=== PATIENT | female | born 1980 | race Caucasian/White ===

== ENCOUNTER 2024-07-08 09:53 | Inpatient (IN) | payer OTHER, SELFPAY ==
--- OUTSIDE RECORDS SUMMARY | 2024-07-08 09:55 | XMS REPORT | Continuity of Care Document ---
Author Name Unknown Address [address] [place] [address] 1 [address] [place] [address] [facility] thconnect Address [address] [place] [address] Care Team Providers Care Clothing Designer Name Role Phone [place] Attending Clinician Unavailable ASHWIN LANDRY Attending Clinician Unavailabl e [place] Admitting Clinician Unavailable Payers Payer Name Policy Type Policy Number Effective Date Expirati on Date Source [employer] [id number] Coverity - [employer] ACCESS [id number] 2022 00:00:00 [employer] [facility] CARE [id number] 2016 00:00:00 Allergies, Adverse Reactions, Alerts Allergy Name Allergy Type Status Severity Reaction(s) Onset Date Inactive Date Treating Clinician Comments Source NO KNOWN ALLERGIE S Drug Class Active [facility] Social History Smoking Status Start Date Stop Date Source Never Smoker [facility] Medications Ordered Medication Name Filled Medication Name Start Date Stop Date Current Medication? Ordering Clinician Indication Dosage Frequency Signature (SIG) Comments Components Source guanfacine ER 2 mg tablet,exte nded release 24 hr TAKE ONE (1) TABLET(S) BY MOUTH ONCE A DAY. guanfacine ER 2 mg tablet,exte nded release 24 hr TAKE ONE (1) TABLET(S) BY MOUTH ONCE A DAY. No guanfacine ER 2 mg tablet,ext ended release 24 hr TAKE ONE (1) TABLET(S) BY MOUTH ONCE A DAY. [facility] omeprazole 40 mg capsule,del ayed release TAKE ONE (1) CAPSULE(S) BY MOUTH ONCE A DAY. DO NOT CRUSH OR CHEW. omeprazole 40 mg capsule,del ayed release TAKE ONE (1) CAPSULE(S) BY MOUTH ONCE A DAY. DO NOT CRUSH OR CHEW. No omeprazole 40 mg capsule,de layed release TAKE ONE (1) CAPSULE(S) BY MOUTH ONCE A DAY. DO NOT CRUSH OR CHEW. [facility] propranolol 20 mg tablet TAKE ONE (1) TABLET(S) BY MOUTH ONCE A DAY. propranolol 20 mg tablet TAKE ONE (1) TABLET(S) BY MOUTH ONCE A DAY. No propranolo l 20 mg tablet TAKE ONE (1) TABLET(S) BY MOUTH ONCE A DAY. [facility] sertraline 100 mg tablet TAKE ONE (1) TABLET(S) BY MOUTH ONCE A DAY. sertraline 100 mg tablet TAKE ONE (1) TABLET(S) BY MOUTH ONCE A DAY. No sertraline 100 mg tablet TAKE ONE (1) TABLET(S) BY MOUTH ONCE A DAY. [facility] atomoxetine 60 mg capsule TAKE ONE (1) CAPSULE(S) BY MOUTH ONCE A DAY. SWALLOW WHOLE, DO NOT OPEN. IF OPENED ACCIDENTALL Y, DO NOT TOUCH EYES, WASH HANDS IMMEDIATELY . atomoxetine 60 mg capsule TAKE ONE (1) CAPSULE(S) BY MOUTH ONCE A DAY. SWALLOW WHOLE, DO NOT OPEN. IF OPENED ACCIDENTALL Y, DO NOT TOUCH EYES, WASH HANDS IMMEDIATELY . No atomoxetin e 60 mg capsule TAKE ONE (1) CAPSULE(S) BY MOUTH ONCE A DAY. SWALLOW WHOLE, DO NOT OPEN. IF OPENED ACCIDENTAL LY, DO NOT TOUCH EYES, WASH HANDS IMMEDIATEL Y. [facility] ergocalcife rol (vitamin D2) 1,250 mcg (50,000 unit) capsule TAKE ONE (1) CAPSULE(S) BY MOUTH ONCE WEEKLY. ergocalcife rol (vitamin D2) 1,250 mcg (50,000 unit) capsule TAKE ONE (1) CAPSULE(S) BY MOUTH ONCE WEEKLY. No ergocalcif temo (vitamin D2) 1,250 mcg (50,000 unit) capsule TAKE ONE (1) CAPSULE(S) BY MOUTH ONCE WEEKLY. [facility] Vital Signs Vital Name Observation Time Observation Value Comments S ource BP Diastolic 2022-10-03 00:00:00 79 mm[Hg] [facility] Height 2022-10-03 00:00:00 68 [in_i] [facility] (Body Mass Index) 2022-10-03 00:00:00 28 kg/m2 [facility] dical [facility] BP Systolic 2022-10-03 00:00:00 126 mm[Hg] [facility] Body Weight 2022-10-03 00:00:00 184 [lb_av] [facility] bryn [facility] Plan of Care Planned Activity Planned Date Details Comments Source Diagnostic Test Pending 2022-10-03 00:00:00 pap, IG + HR HPV [code = pap, IG + HR HPV] [facility] Encounters Start Date/Time End Date/Time Encounter Type Admission Type Attending [facility] Care Facility Care Department Encounter ID Source 2022-11-03 00:00:00 2022-11-03 00:00:00 [place] [id number] [facility] 2022-10-03 00:00:00 2022-10-03 00:00:00 [place] [id number] [facility] 2022-10-03 00:00:00 2022-10-03 00:00:00 Ivis Palmer MD: [address] [place] [address] [address], [place] [address] , Ph. [phone] [facility] [id number] [facility] 2022-06-29 00:00:00 2022-06-29 00:00:00 Outpatient [facility] [id number] [facility] 2016-11-17 09:45:00 2016-11-17 10:50:51 Outpatient ASHWIN MONTEJO [facility] [id number] [facility] Results Test Description Test Time Test Comments Results Resul t Comments Source SCR MAMM BILATERAL BENEDICTO CAD DIGITAL 2022-09-01 08:44:11 Name: Stefany : 1980 Sex: F - SCR MAMM BILATERAL EBNEDICTO CAD DIGITALBILATERAL FIRST EVER DIGITAL SCREENING MAMMOGRAM 3D/2D WITH CAD: 2Digital breast tomosynthesis was performed in addition to routine CC and MLO views. Current mammographic images were evaluated by [employer] CAD (computer-aided detection) software. No prior exams were available for comparison. The tissue of both breasts is heterogeneously dense. This may lower the sensitivity of mammography. There is a 7 cm fat containing mixed density mass with a circumscribed margin and thin capsule (?fibroadenolipoma/hama rtoma?) in the right breast at 9 o'clock posterior depth. No other significant masses, calcifications, or other findings are seen in either breast. IMPRESSION: INCOMPLETE: ADDITIONAL IMAGING EVALUATION NEEDEDThe 7 cm mixed density mass in the right breast is indeterminate. Additional views as well as an ultrasound are recommended. Jovita ruiz/:09/01/2022 08:44:11 Java Sybase Developer: Loren Lomax MM, [facility] Mammographyletter sent: Additional Imaging Mammogram BI-RADS: 0 Incomplete: Additional Imaging Evaluation Needed
[2024-07-08] MEDS ORDERED: NA CHLORIDE 0.9% 1,000 ML ONE (10:22)
[2024-07-08] MEDS ORDERED: DIAZEPAM 5 MG TABLET ONE (10:38)
[2024-07-08 10:41] LABS: Absolute Lymphocytes (CBC) 0.9 K/uL (0.7-4.9); Absolute Monocytes 0.5 K/uL (0.1-1.3); Absolute Neutrophil 5.3 K/uL (1.8-8.0); Basophils % 0.5 % (0-1.3); Eosinophils % 0.1 % (0-4.4); Hematocrit 21.4 % (36.0-45.0); Hemoglobin 7.2 g/dL (12.0-15.0); MCH 29.2 pg (27.0-35.0); MCHC 33.5 g/dL (32.0-36.0); MCV 87.1 fL (80-100); MPV 7.4 fL (7.6-11.3); Monocytes % 7.2 % (3.3-12.3); Neutrophils % 79.2 % (41.7-73.7); Platelets 243 thou/uL (152-406); RBC Red Blood Cell Count 2.46 M/uL (3.86-4.86); Red Cell Distribution Width 12.9 % (12.1-15.2)
[2024-07-08 10:57] LABS: Albumin 3.1 g/dL (3.4-5.0); Anion Gap 10.5 mEq/L (5.0-15.0); Bilirubin Total 0.3 mg/dL (0.2-1.0); Globulin 3.1 g/dL (2.3-3.5); Potassium 3.5 mEq/L (3.5-5.1); Protein, Total 6.2 g/dL (6.4-8.2)
[2024-07-08 11:25] LABS: Specific Gravity 1.008 (1.005-1.030)
[2024-07-08 11:35] LABS: Sqamous Epithelial <5 /HPF (None Seen); Urine Bacteria <20 /HPF (<20); Urine Culture Reflex Order NOT NEEDED; Urine RBC <5 /HPF (None Seen); Urine WBC <5 /HPF (<5); Urine WBC Clump Rare /HPF (None Seen)
--- NOTE | 2024-07-08 12:05 | RAD REPORT ---
EXAMINATION: CT ABDOMEN AND PELVIS WITH CONTRAST CLINICAL INDICATION: Female, 44 years old. [facility] MAIN bloody diarrhea, possible colitis;Abd pain IV ONLY Bed Name: 15 TECHNIQUE: CT abdomen and pelvis was performed, after the administration of IV contrast, as per [facility] protocol. Contrast dose: 100 mL Isovue 300. Axial, sagittal and coronal reconstructions were obtained. One or more of the following dose reduction techniques were used: Automated exposure contro l, adjustment of the mA and kV according to patient size, and iterative reconstruction. Unless otherwise specified, incidental findings do not require dedicated imaging follow-up. COMPARISON: No prior exam. FINDINGS: LOWER CHEST: The visualized lung bases are clear. LIVER: Normal in size and contour. No focal lesion. BILIARY SYSTEM: Layering mildly hyperdense gallbladder sludge. No other suspicious abnormalities. SPLEEN: Normal size. No focal lesion. PANCREAS: No mass, ductal dilation, or mono-pancreatic fluid. ADRENALS: Normal; no mass. KIDNEYS: Normal size and contour. No hydronephrosis. URINARY BLADDER: Unremarkable. GASTROINTESTINAL TRACT: No evidence of free air, significant intra-abdominal free fluid, bowel obstru ction or abscess. Fluid filling of the rectum with air-fluid level, without significant mucosal hyperenhancement or wall thickening. APPENDIX: Normal appendix. LYMPH NODES: No lymphadenopathy. MUSCULOSKELETAL: No acute or suspicious osseous abnormality. ADDITIONAL FINDINGS: None. IMPRESSION: Fluid filling of the rectum, may suggest proctitis or diarrheal state. No other acute or concerning abnormalities seen in the abdomen or pelvis.
[2024-07-08] MEDS ORDERED: MORPHINE 2 MG/ML SYR IV PRN (12:23)
--- NOTE | 2024-07-08 12:23 | ER ---
Nurse's Notes [facility] Name: Júnior Flaherty Age: 44 yrs Sex: Female : 1980 Arrival Date: 07/08/2024 Time: 09:53 Bed 15 Private MD: Diagnosis: Left sided colitis with rectal bleeding;Anemia, unspecified Presentation: 07/08 09:58 Chief complaint: Patient states: "on Monday I felt like I had food poisoning and then aa I had blood in the stool ". Pt c/o nausea/vomiting/diarrhea, seen in ER recently and dx with Colitis. 09:58 Onset of symptoms was June 2024. [facility] 09:58 Acuity: KENDY 3 [facility] 09:58 Coronavirus screen: diarrhea, nausea, vomiting. Ebola Screen: Patient denies travel to [facility] an Ebola-affected area in the 21 days before illness onset. Initial Sepsis Screen: Does the patient meet any 2 criteria? HR > 90 bpm. Does the patient have a suspected source of infection?. Risk Assessment: Do you want to hurt yourself or someone else? Patient reports no desire to harm self or others. 09:58 Method Of Arrival: Ambulatory [facility] IMAGING TECHNICIAN: 13:39 LMP 07/02/2024, unknown ko1 Historical: - Allergies: 10:44 No Known Allergies; ko1 - PMHx: 13:20 Depressive disorder; colitis; ko1 - Immunization history:: Adult Immunizations up to date. - Infectious Disease History:: Denies. - Family history:: not pertinent. - Hospitalizations: : No recent hospitalization is reported. - Social history:: Smoking status: Patient denies any tobacco usage or history of. Screenin:34 [facility] ED Fall Risk Assessment (Adult) History of falling in the last 3 months, ko1 including since admission No falls in past 3 months (0 pts) Confusion or Disorientation No (0 pts) Intoxicated or Sedated No (0 pts) Impaired Gait No (0 pts) Mobility Assist Device Used No (0 pt) Altered Elimination No (0 pt) Score/Fall Risk Level 0 - 2 = Low Risk Oriented to surroundings, Maintained a safe environment, Educated pt \\T\\ family on fall prevention, incl call for assistance when getting out of bed, Assessed \\T\\ reinforced patient's understanding of fall precautions, Provided non-skid footwear, Hourly rounding (assess needs \\T\\ fall precautionary measures) done. Abuse screen: Denies threats or abuse. Denies injuries from another. Nutritional screening: No deficits noted. Tuberculosis screening: No symptoms or risk factors identified. Assessment: 10:30 General: Appears in no apparent distress. Behavior is cooperative, appropriate for age, ko1 anxious. Pain: Denies pain. Neuro: Reports lightheaded. Cardiovascular: Rhythm is sinus tachycardia. Respiratory: No deficits noted. GI: Reports bloody stool. : No deficits noted. EENT: No deficits noted. Derm: No deficits noted. Musculoskeletal: No deficits noted. 10:43 Reassessment: patient states she is unable to provide urine sample at this time. ko1 14:10 Reassessment: transfer to ICU delayed due to patient going to MRI, per Ángel in MRI: ko1 patient cannot start blood transfusion prior to having GI bleed study. Will hold initiation of PRBC's until patient returns from study. 16:22 Reassessment: Sent for PRBC's, holding transfer to ICU per Ismael Hidalgo request as she is ko1 coming to see patient regarding scan results. 16:39 Reassessment: Initiated transfer to [facility] per Anna Hidalgo NP (hospitalist) jim at 1627 spoke to Latoya, faxed demographics and ER chart as requested. . 16:39 Reassessment: Anna Hidalgo NP requests to keep pt in ER at this time. . jim 17:40 Reassessment: contacted [facility] about update on transfer, staff states Latoya fernandez will call back with update. . 17:47 Reassessment: patient does not want diazepam at this time, wants to wait a little while ko1 and will call nurse when she is ready for it. 18:45 Reassessment: Contacted Latoya at [facility] transfer center, pending acceptance, jim attempted to upgrade transfer to emergent per hospitalist and Latoya states she will speak to her housekeeping staff about it and give us a call back. . 19:10 General: Appears in no apparent distress. comfortable, Behavior is calm, cooperative, rg5 appropriate for age. Pain: Denies pain. Neuro: Level of Consciousness is awake, alert, obeys commands, Oriented to person, place, time. Cardiovascular: Denies chest pain, shortness of breath, Patient's skin is warm and dry. Rhythm is sinus tachycardia. Respiratory: Airway is patent Trachea midline Respiratory effort is even, unlabored, Respiratory pattern is regular, symmetrical. GI: Abd is soft and non tender Reports bloody stool. : No signs and/or symptoms were reported regarding the genitourinary system. EENT: No deficits noted. Derm: No deficits noted. Musculoskeletal: Range of motion: intact in all extremities. 20:29 Reassessment: Spoke with Marlena manufacturing coordinator at [facility] who states she ss has not heard back from the housekeeping staff and will try to again and call us back with update. 20:35 Reassessment: Acceptance from GLORIA Mendiola manufacturing coordinator at [facility] at this ss time. Accepting Trevor Mcmahon \\T\\ [id number]. Pt to go to [address] [place] [place] [address] 3. 20:35 Reassessment: Called EMS who states they will be here in approximately 15 minutes to transport patient to receiving facility. 21:33 Reassessment: No changes from previously documented assessment. Patient and/or family rg5 updated on plan of care and expected duration. Pain level reassessed. Patient is alert, oriented x 3, equal unlabored respirations, skin warm/dry/pink. Patient states feeling better. Patient states symptoms have improved. Vital Signs: 09:58 BP 120 / 63; Pulse 139; Resp 18 S; Temp 97.8(TE); Pulse Ox 100% on R/A; aa5 10:44 BP 123 / 59; Pulse 115; Resp 17; Pulse Ox 99% on R/A; ko1 11:47 BP 129 / 63; Pulse 121; Resp 15; Pulse Ox 98% ; ko1 13:38 BP 147 / 70; Pulse 113; Resp 15; Pulse Ox 100% on R/A; ko1 14:12 BP 125 / 70; Pulse 114; Resp 16; Pulse Ox 100% ; ko1 16:30 BP 144 / 84; Pulse 125; Resp 16; Pulse Ox 99% ; ko1 17:50 BP 124 / 59; Pulse 111; Resp 16; Temp 98.9; Pulse Ox 100% ; ko1 19:18 BP 125 / 53; Pulse 119; Resp 17; Temp 98.5; Pulse Ox 100% on R/A; Pain 0/10; rg5 20:11 BP 121 / 49; Pulse 117; Resp 17; Temp 98.3; Pulse Ox 100% on R/A; Pain 0/10; rg5 20:36 BP 124 / 55; Pulse 109; Resp 17; Temp 98.3(O); Pulse Ox 100% on R/A; Pain 0/10; rg5 21:49 BP 118 / 62; Pulse 105; Resp 16; Temp 98; Pulse Ox 100% on R/A; Pain 0/10; rg5 19:18 Pain Scale: Adult rg5 20:11 Pain Scale: Adult rg5 20:36 Pain Scale: Adult rg5 21:49 Pain Scale: Adult rg5 Batsheva Coma Score: 19:10 Eye Response: spontaneous(4). Motor Response: obeys commands(6). Verbal Response: rg5 oriented(5). Total: 15. ED Course: 09:54 Patient arrived in ED. ra3 09:55 Salinas Lopez MD is Attending Physician. rn 09:58 Arm band placed on Patient placed in an exam room, on a stretcher. aa5 10:01 Jamia Leroy, RN is Primary Nurse. ko1 10:09 Triage completed. aa5 10:20 ED physician to see patient. ko1 10:33 CBC with Diff Sent. ko1 10:33 CMP Sent. ko1 10:33 Lipase Sent. ko1 10:34 anxiety meds. ko1 10:34 Patient has correct armband on for positive identification. Bed in low position. Call ko1 light in reach. Side rails up X 1. Provided Education on: labs. Pulse ox on. NIBP on. Door closed. Noise minimized. Lights dimmed. Warm blanket given. Pillow given. 10:34 Initial lab(s) drawn, by me, sent to lab. Inserted saline lock: 20 gauge in right ko1 antecubital area, using aseptic technique. Blood collected. Flushed with 10 mL NS. 10:44 No provider procedures requiring assistance completed. ko1 11:08 Patient requests rest room assistance. ko1 11:08 Assisted to bathroom. ko1 11:14 Test, Urine Sent. ko1 11:14 Urinalysis w/ reflexes Sent. ko1 11:36 Patient moved to DC via wheelchair. ko1 11:38 CT Abd/Pelvis - IV Contrast Only In Process Unspecified. EDMS 11:40 Bb Add On Sent. ko1 11:40 T\\T\\S collected, blood band applied to patient. ko1 11:41 Type And Screen Sent. ko1 12:15 Patient requests rest room assistance. ko1 12:15 Assisted to bathroom. ko1 12:22 John Alexander MD is Hospitalizing Provider. rn 12:37 1237 CM met with and her mother at the bedside in the ED exam room. ane Patient identified by name and . Mrs. Flaherty reports she lives with her and children a single story home. Demographic sheet confirmed. Patient states that prior to admission, she performs ADLs independently and without physical limitations. No DME, HH, home oxygen or other medical services. No MPOA in place at this time. Patient's preferred plan is to return home upon discharge and states that either her Mom or her Bob will be available to transport her home. CM team will continue to follow and coordinate care. 13:16 Packed RBC Leukored Sent. ko1 13:38 Patient admitted, IV remains in place. ko1 14:41 Patient moved to MRI. ko1 16:22 Patient moved back from [facility]. ko1 19:09 Primary Nurse role handed off by Jamia Leroy, GLORIA ko1 19:10 transfer approval from receiving facility. rg5 19:10 Door closed. Noise minimized. Warm blanket given. Verbal reassurance given. rg5 19:17 Anson Sparks, RN is Primary Nurse. rg5 21:35 transfer transportation to receiving facility. rg5 21:45 Hematocrit Sent. rg5 21:45 Hematocrit Sent. rg5 21:45 CBC with Automated Diff Sent. rg5 21:45 CBC with Automated Diff Sent. rg5 21:45 Hemoglobin Sent. rg5 21:45 Lipid Profile Sent. rg5 21:45 Lipid Profile Sent. rg5 21:45 Hemoglobin Sent. rg5 Administered Medications: 10:33 Drug: NS 0.9% IV 1000 ml IV at 1 bolus Per protocol; 1000 mL bolus Route: IV; Rate: 1 ko1 bolus; Site: right antecubital; 12:16 Follow up: Response: No adverse reaction; IV Status: Completed infusion; IV Intake: ko1 1000ml 10:39 Drug: Diazepam PO 5 mg PO once Route: PO; ko1 11:09 Follow up: Response: No adverse reaction ko1 12:25 Drug: metroNIDAZOLE IVPB 500 mg 100 ml IVPB at 200 ml/hr once over 30 mins Volume: 100 ko1 ml; Route: IVPB; Rate: 200 ml/hr; Infused Over: 30 mins; Site: right antecubital; 12:55 Follow up: Response: No adverse reaction; IV Status: Completed infusion; IV Intake: ko1 100ml 13:01 Drug: Ciprofloxacin IVPB 400 mg 200 ml IVPB once over 60 mins Volume: 200 ml; Route: ko1 IVPB; Infused Over: 60 mins; Site: right antecubital; 14:09 Follow up: Response: No adverse reaction; IV Status: Completed infusion; IV Intake: ko1 200ml 21:00 Drug: Diazepam IVP 5 mg IVP once Route: IVP; Site: right antecubital; rg5 21:50 Follow up: Response: No adverse reaction rg5 Medication: 10:34 VIS not applicable for this client. ko1 16:50 Blood products: PRBCs X 1 unit given. See transfusion record. ko1 Intake: 12:16 IV: 1000ml; Total: 1000ml. ko1 12:55 IV: 100ml; Total: 1100ml. ko1 14:09 IV: 200ml; Total: 1300ml. ko1 Outcome: 12:21 Discharge ordered by . rn 12:22 Decision to Hospitalize by Provider. rn 13:38 Condition: stable ko1 13:38 Instructed on the need for admit, 17:00 Admitted to ICU Report called to GLORIA Saunders ko1 21:50 Transferred by ground EMS to [facility], [facility], rg5 21:50 Condition: stable 21:50 Instructed on the need for transfer, Demonstrated understanding of instructions, 22:04 Patient left the ED. rg5 Signatures: Dispatcher [employer] EDMS Salinas Lopez MD MD rn Calderon, Audri RN GLORIA aa5 Glory Echeverria RN RN ss Oliver, Kathy, RN RN ko1 Nya Morelos ra3 Anson Sparks RN RN rg5 Marina Contreras RN RN ane Corrections: (The following items were deleted from the chart) 17:24 16:30 Blood products: PRBCs X 1 unit given. See transfusion record ko1 ko1
--- NOTE | 2024-07-08 12:23 | EDPHYS ---
Physician Documentation [facility] Name: Júnior Flaherty Age: 44 yrs Sex: Female : 1980 Arrival Date: 07/08/2024 Time: 09:53 Bed 15 Private MD: ED Physician Salinas Lopez HPI: 07/08 10:20 This 44 yrs old Female presents to ER via Ambulatory with complaints of lightheaded, rn bloody diarrhea. 10:20 The patient presents to the emergency department with rectal bleeding, a small amount, rn bright red blood with bowel movement, with multiple such episodes. Onset: The symptoms/episode began/occurred 2 day(s) ago. Abdominal pain: described as achy, crampy, located in the abdomen diffusely. Modifying factors: The symptoms are alleviated by nothing, the symptoms are aggravated by nothing. Severity of symptoms: At their worst the symptoms were moderate in the emergency department the symptoms have improved. The patient has not experienced similar symptoms in the past. The patient has been recently seen by a physician:. Patient reports 2 days of bloody diarrhea, bright red blood, associated with nausea. Seen at outside emergency room on day 1 of illness, hemoglobin was 10.[address] showed diffuse colitis. No family history of inflammatory bowel disease. Patient not on blood thinners. No trauma. Patient reports feeling a little lightheaded but attributes this to her anxiety. Reports several episodes of bloody diarrhea since starting. Yesterday did not have any bloody bowel movements and it returned today. Initially had abdominal cramping that is episodic, denies current abdominal pain or worsening of pain.. PROJECT PORTFOLIO ANALYST: 13:39 LMP 07/02/2024, unknown ko1 Historical: - Allergies: 10:44 No Known Allergies; ko1 - PMHx: 13:20 Depressive disorder; colitis; ko1 - Immunization history:: Adult Immunizations up to date. - Infectious Disease History:: Denies. - Family history:: not pertinent. - Hospitalizations: : No recent hospitalization is reported. - Social history:: Smoking status: Patient denies any tobacco usage or history of. ROS: 10:20 Constitutional: Negative for fever, chills, and weight loss, Cardiovascular: Negative rn for chest pain, palpitations, and edema, Respiratory: Negative for shortness of breath, cough, wheezing, and pleuritic chest pain, Abdomen/GI: Positive for abdominal pain with nausea and bloody diarrhea Back: Negative for injury and pain, : Negative for injury, bleeding, discharge, and swelling, MS/Extremity: Negative for injury and deformity, Neuro: Positive for generalized weakness and malaise Exam: 10:20 Constitutional: This is a well developed, well nourished patient who is awake, alert, rn and in no acute distress. Eyes: Pale conjunctiva ENT: Dry mucous membranes Cardiovascular: Tachycardic, regular Respiratory: No hyperventilation, speaking full sentences Abdomen/GI: Nontender, nondistended, no guarding or peritoneal signs Skin: Pale skin Neuro: Awake and alert, GCS 15 Vital Signs: 09:58 BP 120 / 63; Pulse 139; Resp 18 S; Temp 97.8(TE); Pulse Ox 100% on R/A; aa5 10:44 BP 123 / 59; Pulse 115; Resp 17; Pulse Ox 99% on R/A; ko1 11:47 BP 129 / 63; Pulse 121; Resp 15; Pulse Ox 98% ; ko1 13:38 BP 147 / 70; Pulse 113; Resp 15; Pulse Ox 100% on R/A; ko1 14:12 BP 125 / 70; Pulse 114; Resp 16; Pulse Ox 100% ; ko1 16:30 BP 144 / 84; Pulse 125; Resp 16; Pulse Ox 99% ; ko1 17:50 BP 124 / 59; Pulse 111; Resp 16; Temp 98.9; Pulse Ox 100% ; ko1 19:18 BP 125 / 53; Pulse 119; Resp 17; Temp 98.5; Pulse Ox 100% on R/A; Pain 0/10; rg5 20:11 BP 121 / 49; Pulse 117; Resp 17; Temp 98.3; Pulse Ox 100% on R/A; Pain 0/10; rg5 20:36 BP 124 / 55; Pulse 109; Resp 17; Temp 98.3(O); Pulse Ox 100% on R/A; Pain 0/10; rg5 21:49 BP 118 / 62; Pulse 105; Resp 16; Temp 98; Pulse Ox 100% on R/A; Pain 0/10; rg5 19:18 Pain Scale: Adult rg5 20:11 Pain Scale: Adult rg5 20:36 Pain Scale: Adult rg5 21:49 Pain Scale: Adult rg5 Batsheva Coma Score: 19:10 Eye Response: spontaneous(4). Motor Response: obeys commands(6). Verbal Response: rg5 oriented(5). Total: 15. MDM: 09:55 Patient medically screened. rn 12:20 Differential diagnosis: diverticulitis, hemorrhoids, Colitis, diverticulosis. Data rn reviewed: vital signs, nurses notes, lab test result(s), radiologic studies, CT scan, and as a result, I will admit patient. Consideration of Admission/Observation Patient was admitted/placed on observation. Escalation of care including admission/observation considered. Counseling: I had a detailed discussion with the patient and/or guardian regarding the historical points, exam findings, and any diagnostic results supporting the discharge/admit diagnosis, lab results, radiology results, the need for further work-up and treatment in the hospital. Response to treatment: the patient's symptoms have mildly improved after treatment. ED course: Patient improved after fluid administration, hemoglobin 7.2, will transfuse blood given 3 point drop in the last 2 days.. 12:21 ED course: I personally spent 35 minutes engaged in work directly related to the rn individual patient's care. This does not include any time spent performing procedures. The patient has been deemed critically ill because of anemia, rapid drop in hemoglobin, requiring blood transfusion, IV antibiotics, resuscitation and ultimately admission to the hospital.. 07/08 10:18 Order name: CBC with Diff; Complete Time: 11:08 rn 07/08 11:08 Interpretation: Abnormal. rn 07/08 10:18 Order name: CMP; Complete Time: 11:08 rn 07/08 10:18 Order name: Lipase; Complete Time: 11:08 rn 07/08 10:18 Order name: Test, Urine; Complete Time: 12:11 rn 07/08 10:18 Order name: Urinalysis w/ reflexes; Complete Time: 12:48 rn 07/08 11:22 Order name: Type And Screen rn 07/08 11:23 Order name: Bb Add On bd 07/08 11:31 Order name: Packed RBC Leukored EDCT 07/08 12:34 Order name: ABO/RH no charge; Complete Time: 12:48 EDCT 07/08 12:43 Order name: Comprehensive Metabolic Panel; Complete Time: 18:25 EDCT 07/08 12:43 Order name: CBC with Automated Diff EDCT 07/08 12:43 Order name: CBC with Automated Diff EDCT 07/08 12:43 Order name: Hematocrit EDCT 07/08 12:43 Order name: Hematocrit; Complete Time: 18:25 EDCT 07/08 12:43 Order name: Hematocrit EDCT 07/08 12:43 Order name: Hemoglobin EDCT 07/08 12:43 Order name: Hemoglobin; Complete Time: 18:25 EDCT 07/08 12:43 Order name: Hemoglobin EDCT 07/08 12:43 Order name: Lipid Profile EDCT 07/08 12:43 Order name: Lipid Profile [facility] 07/08 10:18 Order name: CT Abd/Pelvis - IV Contrast Only; Complete Time: 12:11 rn 07/08 12:43 Order name: GI Blood Loss Imaging; Complete Time: 16:16 EDCT 07/08 12:43 Order name: CONS Physician Consult; Complete Time: 21:45 EDCT 07/08 12:43 Order name: EKG Electrocardiogram; Complete Time: 21:44 [facility] 07/08 12:43 Order name: EKG Electrocardiogram; Complete Time: 21:44 EDCT 07/08 12:43 Order name: EKG Electrocardiogram; Complete Time: 21:44 EDCT 07/08 12:43 Order name: EKG Electrocardiogram; Complete Time: 21:45 [facility] 07/08 12:43 Order name: EKG Electrocardiogram; Complete Time: 21:44 EDCT 07/08 12:43 Order name: EKG Electrocardiogram; Complete Time: 21:44 EDCT 07/08 12:43 Order name: EKG Electrocardiogram; Complete Time: 21:44 EDCT 07/08 12:43 Order name: EKG Electrocardiogram; Complete Time: 21:44 EDCT 07/08 12:43 Order name: EKG Electrocardiogram; Complete Time: 21:44 EDCT 07/08 12:43 Order name: EKG Electrocardiogram; Complete Time: 21:44 EDCT 07/08 12:43 Order name: EKG Electrocardiogram; Complete Time: 21:44 EDCT 07/08 10:18 Order name: IV Saline Lock; Complete Time: 10:33 rn 07/08 10:18 Order name: Labs collected and sent; Complete Time: 10:33 rn 07/08 11:29 Order name: Transfuse; Complete Time: 17:47 rn Administered Medications: 10:33 Drug: NS 0.9% IV 1000 ml IV at 1 bolus Per protocol; 1000 mL bolus Route: IV; Rate: 1 ko1 bolus; Site: right antecubital; 12:16 Follow up: Response: No adverse reaction; IV Status: Completed infusion; IV Intake: ko1 1000ml 10:39 Drug: Diazepam PO 5 mg PO once Route: PO; ko1 11:09 Follow up: Response: No adverse reaction ko1 12:25 Drug: metroNIDAZOLE IVPB 500 mg 100 ml IVPB at 200 ml/hr once over 30 mins Volume: 100 ko1 ml; Route: IVPB; Rate: 200 ml/hr; Infused Over: 30 mins; Site: right antecubital; 12:55 Follow up: Response: No adverse reaction; IV Status: Completed infusion; IV Intake: ko1 100ml 13:01 Drug: Ciprofloxacin IVPB 400 mg 200 ml IVPB once over 60 mins Volume: 200 ml; Route: ko1 IVPB; Infused Over: 60 mins; Site: right antecubital; 14:09 Follow up: Response: No adverse reaction; IV Status: Completed infusion; IV Intake: ko1 200ml 21:00 Drug: Diazepam IVP 5 mg IVP once Route: IVP; Site: right antecubital; rg5 21:50 Follow up: Response: No adverse reaction rg5 Disposition Summary: 07/08/24 12:22 Hospitalization Ordered Notes: Hospitalization Status: Inpatient Admission rn Provider: John Alexander rn Condition: Stable(07/08/24 12:22) rn Problem: new(07/08/24 12:22) rn Symptoms: have improved(07/08/24 12:22) rn Bed/Room Type: Standard rn Location: Intensive Care Unit(07/08/24 13:10) bd Room Assignment: (07/08/24 20:52) ss Diagnosis - Left sided colitis with rectal bleeding(07/08/24 12:22) rn - Anemia, unspecified(07/08/24 12:22) rn Forms: - Medication Reconciliation Form rn - SBAR form rn - Leadership Thank You Letter crna time excluding procedures: 12:21 Critical care time: Bedside Care: 35 minutes. Total time: 35 minutes rn Signatures: Dispatcher Jaci Bearden Shelly, FNP-C SOLAR SALES ASSESSOR-Estrellitaw Salinas Lopez MD MD rn Glory Echeverria, RN RN ss Jamia Leroy, RN RN Delphine Herrera PA-C PAVirgilio sb4 Anson Sparks, RN RN rg5 Corrections: (The following items were deleted from the chart) 12: 12:21 Home rn rn 12: 12:21 new rn rn : 12:21 have improved rn rn : 12:21 Stable rn rn : 12:21 Left sided colitis with rectal bleeding rn rn 12: 12:21 Anemia, unspecified rn rn 13:10 12:22 Telemetry/MedSurg (Inpatient) rn bd 13:10 12:22 rn bd 20:52 13:10 1- bd ss
[2024-07-08 12:24] LABS: Specific Gravity 1.009 (1.005-1.030); Urine Bilirubin NEGATIVE (Negative); Urine Blood Negative (Negative); Urine Clarity Clear (Clear); Urine Color Light-Yellow (Yellow); Urine Glucose NEGATIVE (Negative); Urine Ketones 2+ (Negative); Urine Microscopic Reflex YN NO UMIC; Urine Nitrite NEGATIVE (Negative); Urine Protein NEGATIVE (Negative); Urine Urobilinogen Normal (Normal)
[2024-07-08] MEDS ORDERED: METRONIDAZOLE 500mg IVPB 500 MG/100 ML BAG IV ONE (12:24)
[2024-07-08] MEDS ORDERED: CIPROFLOXACIN 400mg IV 400 MG/200 ML BAG IV ONE (12:24)
--- NOTE | 2024-07-08 12:53 | P.HP ---
Certification for Inpatient Patient admitted to: Inpatient With expected LOS: >2 Midnights Patient will require the following post-hospital care: None Practitioner: I am a practitioner with admitting privileges, knowledge of patient current condition, hospital course, and medical plan of care. Services: Services provided to patient in accordance with Admission requirements found in Title 42 Section 412.3 of the Code of Federal Regulations <Anna Hidalgo - Last Filed: 07/08/24 14:18> Patient History Date of Service: 07/08/24 Reason for admission: Acute blood loss anemia secondary to colitis History of Present Illness: Mrs. Flaherty is a 44-year-old female with a past medical history of anxiety, migraine, reflux, and intermittent tachycardia who presented to the emergency department today with a 3-day history of significant bloody stools. She states she was helping her daughter plan her wedding and had [employer] for lunch and almost immediately felt nauseated. A short time later, she was found on the bathroom floor with emesis on the floor and blood on the toilet. She was seen at [facility], diagnosed with colitis, and given Flagyl and Levaquin p.o. At that visit, her hemoglobin was 10.4. Today she felt increasingly tachycardic and had near syncope, so presented to the emergency department. On assessment, she is pale, mildly tachycardic in the 120s, and anxious. H&H in the emergency department 7.2.[address] impression: "Fluid filling of the rectum, may suggest proctitis or diarrheal state. No other acute or concerning abnormality seen in the abdomen or pelvis." She will be admitted for acute blood loss secondary to colitis. Home medications list reviewed: Yes (Propranolol, Prilosec, Prozac, Zyrtec) - Past Medical/Surgical History Has patient received pneumonia vaccine in the past: No -: Migraine -: Tachycardia -: GERD -: D&C Psychosocial/ Personal History: Lives at home with her . Has 2 children. - Social History Smoking Status: Former smoker Alcohol use: Yes CD- Drugs: No Caffeine use: Yes Place of Residence: Home <Anna Hidalgo - Last Filed: 07/08/24 14:18> Date of Service: 07/08/24 <John Alexander - Last Filed: 07/08/24 17:08> Allergies No Known Allergies Allergy (Unverified 07/08/24 13:06) Review of Systems 10-point ROS is otherwise unremarkable General: Weakness, Malaise Gastrointestinal: Nausea, Diarrhea, Melena, Other (Denies abdominal pain), As per HPI Genitourinary: Unremarkable Musculoskeletal: Unremarkable Integumentary: Unremarkable <Anna Hidalgolen - Last Filed: 07/08/24 14:18> Physical Examination - Physical Exam General: Alert, In no apparent distress, Oriented x3, Other (Pale) HEENT: Other (P[place]or) Neck: Supple Respiratory: Normal air movement Cardiovascular: Regular rate/rhythm, Other (Tachycardia) Capillary refill: <2 Seconds Gastrointestinal: Normal bowel sounds, Soft and benign Musculoskeletal: No clubbing Integumentary: No rashes, Other (P[place]or) Neurological: Normal speech, Normal tone, Normal affect Lymphatics: No axilla or inguinal lymphadenopathy External genitalia: Deferred Rectal: Deferred - Studies Laboratory Data (last 24 hrs) 07/08/24 07/08/24 10:30 10:30 WBC 6.70 Hgb 7.2 L Hct 21.4 L Plt Count 243 Sodium 139 Potassium 3.5 BUN 11 Creatinine 0.71 Glucose 127 H Total Bilirubin 0.3 AST 11 L ALT 15 Alkaline Phosphatase 25 L Lipase 24 <Anna Hidalgolen - Last Filed: 07/08/24 14:18> - Studies Laboratory Data (last 24 hrs) 07/08/24 07/08/24 10:30 10:30 WBC 6.70 Hgb 7.2 L Hct 21.4 L Plt Count 243 Sodium 139 Potassium 3.5 BUN 11 Creatinine 0.71 Glucose 127 H Total Bilirubin 0.3 AST 11 L ALT 15 Alkaline Phosphatase 25 L Lipase 24 <John Alexander C - Last Filed: 07/08/24 17:08> Assessment and Plan - Plan Acute blood loss anemia secondary to colitis: Near syncope with tachycardia secondary to acute blood loss anemia IVF 2 units PRBCs every 4 H&H x 2 Monitor and trend CBC, CMP IV antibiotics Protonix 40 mg IV twice daily nuclear medicine bleeding study to identify active bleeding Consult Dr. Paula Hypertension/migraine Continue propranolol Continue propranolol to avoid rebound tachycardia and decrease blood pressure GERD Rule out H. pylori VTE/GI prophylaxis Teds/Protonix Discharge Plan: Home Plan to discharge in: 48 Hours - Advance Directives Does patient have a Living Will: No Does patient have a Durable POA for Healthcare: No - Code Status/Comfort Care Code Status Assessed: Yes Code Status: Full Code Critical Care: Yes (Stat PRBCs) Time Spent Managing Pts Care (In Minutes): 50 <Anna Hidalgo - Last Filed: 07/08/24 14:18> - Plan Pt seenand examined. I agree with the note by the CAR RETARDER OPERATOR. Pt is a 44 yo female with past medical history of anxiety, migraine, reflux, and intermittent tachycardia who presents with GI bleed for 3 days. Pt reports that she was planning a wedding when for her daughter and took a break to eat lunch from [facility]. Pt felt nauseated and went to the bathroom where she had GI bleed. Pt went to [facility] and she was diagnosed with Colitis and later discharged with levaquinand flagyl. The GI bleed continued and progressively worsened to the extent that she became tachycardic. On admision, her heart rate was 120 and lab studies show wbc 6.7, Hgb 7.2 <- 10, K 3.5, Cr 0.7, NA 139. CT abd shows fluid filling og the rectum. GI bleed scan shows active bleeding in the rectosigmoid area. We consulted GI but pt needs to be transferred to another facility for higher level of care. At bedside, pt is in NAD in the ICu. A/P: GI bleed: Hgb is 6.3 <- 7.2 <- 10. Will transfuse 2 units of blood. Pt will be transferred to another facility for higher level of care. Continue IVF, protonix 40mg iv BID and monitor H/H. Htn / tachycardia: Will continue propranolol. GERD: protonix. Code: full Dispo: We initiated transfer to another facility for higher level of care. <John Alexander - Last Filed: 07/08/24 17:08>
[2024-07-08] MEDS ORDERED: NA CHLORIDE 0.9% 250 ML IV SCH (13:00)
[2024-07-08] MEDS ORDERED: NA CHLORIDE 0.9% 1,000 ML IV SCH (13:00)
[2024-07-08] MEDS ORDERED: NA CHLORIDE 0.9% 250 ML ONE (13:52)
[2024-07-08] MEDS: HEPARIN 5000 UNIT/ML 1 ML VIAL SQ ONE (13:56)
[2024-07-08] MEDS ORDERED: HEPARIN 500 UNIT/5 ML SYR IV ONE (13:58)
--- NOTE | 2024-07-08 16:12 | RAD REPORT ---
EXAMINATION: NUCLEAR MEDICINE GI BLEED STUDY CLINICAL INDICATION: Female, 44 years old. [facility] acute blood loss TECHNIQUE: Following IV administration radiotracer labeled autologous red blood cells, anterior proje ction images of the abdomen and pelvis over 1 hour were obtained in a dynamic acquisition. Further spot images were performed.. RADIOPHARMACEUTICAL: 27.1 Tc-99m autologous labeled red blood cells. COMPARISON: CT dated 07/08/2024 FINDINGS: There is active contrast accumulation within the lower pelvis, favored to be originating in the recto sigmoid colon compatible with active GI bleeding. There is serpiginous motion of the radiotracer throughout the bowel loops. Normal tracer activity noted in the vasculature of the abdomen and the liver and spleen. Physiologic excretion of radiotracer in the kidneys and urinary bladder. IMPRESSION: Positive for active GI bleeding present in the pelvis region, favored to represent bleeding from the rectosigmoid colon. The findings were communicated with ALCON Wells at 07/08/2024 4:09 PM by telephone.
[2024-07-08 16:57] LABS: Hematocrit 18.8 % (36.0-45.0); Hemoglobin 6.3 g/dL (12.0-15.0)
[2024-07-08 17:12] LABS: ALT/SGPT 16 U/L (13-56); Albumin 3.1 g/dL (3.4-5.0); Albumin/Globulin Ratio 1.2 (1.1-1.8); Alkaline Phosphatase 23 U/L (45-117); Anion Gap 11.3 mEq/L (5.0-15.0); BUN Blood Urea Nitrogen 7 mg/dL (7-18); Bicarbonate 22 mEq/L (21-32); Bilirubin Total 0.3 mg/dL (0.2-1.0); Globulin 2.6 g/dL (2.3-3.5); Glomerular Filtration Rate 114 ml/min (=/>90); Glucose Level 116 mg/dL (74-106); Potassium 3.3 mEq/L (3.5-5.1); Protein, Total 5.7 g/dL (6.4-8.2); Sodium Level 141 mEq/L (136-145)
[2024-07-08 17:17] LABS: AST/SGOT < 10 U/L (15-37)
[2024-07-08] MEDS ORDERED: CIPROFLOXACIN 400mg IV 400 MG/200 ML BAG IV SCH ×2 (21:00→22:00)
[2024-07-08] MEDS ORDERED: METRONIDAZOLE 500mg IVPB 500 MG/100 ML BAG IV SCH (21:00)
[2024-07-08] MEDS ORDERED: PANTOPRAZOLE 40 MG INJ IVP SCH (21:00)
[2024-07-08] MEDS ORDERED: DIAZEPAM 10 MG/2 ML INJ SYRINGE ONE (21:07)
--- NOTE | 2024-07-08 21:12 | P.DS ---
Admission Date: 07/08/24 Discharge Date: 07/08/24 Disposition: TRANSFER TO [facility] Discharge Condition: FAIR Reason for Admission: Acute blood loss anemia secondary to colitis Brief History of Present Illness: Mrs. Flaherty is a 44-year-old female with a past medical history of anxiety, migraine, reflux, and intermittent tachycardia who presented to the emergency department today with a 3-day history of significant bloody stools. She states she was helping her daughter plan her wedding and had [employer] for lunch and almost immediately felt nauseated. A short time later, she was found on the bathroom floor with emesis on the floor and blood on the toilet. She was seen at [place], diagnosed with colitis, and given Flagyl and Levaquin p.o. At that visit, her hemoglobin was 10.4. Today she felt increasingly tachycardic and had near syncope, so presented to the emergency department. On assessment, she is pale, mildly tachycardic in the 120s, and anxious. H&H in the emergency department 7.2/21.[address] impression: "Fluid filling of the rectum, may suggest proctitis or diarrheal state. No other acute or concerning abnormality seen in the abdomen or pelvis." She will be admitted for acute blood loss secondary to colitis. Hospital Course: Pt is a 44 yo female with past medical history of anxiety, migraine, reflux, and intermittent tachycardia who presented with GI bleed for 3 days. Pt reported that she was planning a wedding for her daughter and took a break to eat lunch from [facility]. Pt felt nauseated after eating lunch and went to the bathroom where she had GI bleed. Pt went to [facility] and she was diagnosed with Colitis per CT abd. Pt was discharged with levaquin and flagyl. The GI bleed continued and progressively worsened to the extent that she became tachycardic this am. This made her come to the ER for evaluation. On admission, her heart rate was 120 and lab studies showed wbc 6.7, Hgb 7.2 <- 10, K 3.5, Cr 0.7, NA 139. CT abd showed fluid filling og the rectum. GI bleed scan showed active bleeding in the rectosigmoid area. We consulted GI who recommended that we transfer pt to another facility for higher level of care. We gave pt 2 units of blood and continued protonix 40mg iv BID and propranolol for tachycardia and htn. Pt was in NAD prior to transfer to [facility] in [place]. Laboratory Data at Discharge: WBC 6.70 thou/uL (4.3-10.9) 07/08/24 10:30 Hgb 6.3 g/dL (12.0-15.0) L D 07/08/24 16:46 Hct 18.8 % (36.0-45.0) L 07/08/24 16:46 Plt Count 243 thou/uL (152-406) 07/08/24 10:30 Sodium 141 mEq/L (136-145) 07/08/24 16:46 Potassium 3.3 mEq/L (3.5-5.1) L 07/08/24 16:46 BUN 7 mg/dL (7-18) 07/08/24 16:46 Creatinine 0.63 mg/dL (0.55-1.02) 07/08/24 16:46 Glucose 116 mg/dL (74-106) H 07/08/24 16:46 Total Bilirubin 0.3 mg/dL (0.2-1.0) 07/08/24 16:46 AST < 10 U/L (15-37) L 07/08/24 16:46 ALT 16 U/L (13-56) 07/08/24 16:46 Alkaline Phosphatase 23 U/L (45-117) L 07/08/24 16:46 Lipase 24 U/L (13-75) 07/08/24 10:30 Followup: Chris Rasheed DO [Primary Care Provider] -
[2024-07-08 22:43] VITALS: O2SAT 100
[2024-07-08 22:50] VITALS: BP 118/62; TEMP 98
[2024-07-09] MEDS ORDERED: PROPRANOLOL HCL 80 MG SA CAP PO SCH (09:00)
[2024-07-09] MEDS ORDERED: FLUOXETINE 20 MG CAP PO SCH ×2 (09:00)
[2024-07-09] MEDS ORDERED: Levofloxacin500mg IV 500 MG/100 ML BAG IV SCH (09:00)
--- NOTE | 2024-07-09 10:25 | EKG ---
Test Date: 2024-07-08 Test Time: 20:03:56 Airplane Cover Maker: RV MEASUREMENT RESULTS: Intervals: Rate: 109 WY: 120 QRSD: 64 QT: 346 QTc: 465 [place]: P: 76 WY: 120 QRS: 68 T: -23 INTERPRETIVE STATEMENTS: Sinus tachycardia Nonspecific ST and T wave abnormality Abnormal ECG No previous ECG available for comparison Electronically Signed On 07-09-24 10:23:44 CDT by Catracho Packer
== END 2024-07-08 22:52 | disposition short-term general hospital (02) | DRG 386 ==
LOC: ER 09:53 → ERHOLD 12:44 → 3RD-ICU 13:46
PROVIDERS: ADMIT Hospitalist; ATTEND Hospitalist
PROC: 30233N1 Transfusion of Nonautologous Red Blood Cells into Peripheral Vein, Percutaneous Approach (ICD-10-PCS; principal; 2024-07-08)
DX: K51.511 Left sided colitis with rectal bleeding (principal); D62 Acute posthemorrhagic anemia; I10 Essential (primary) hypertension; K21.9 Gastro-esophageal reflux disease without esophagitis; G43.909 Migraine, unspecified, not intractable, without status migrainosus; R00.0 Tachycardia, unspecified; Z87.891 Personal history of nicotine dependence
CPT/HCPCS: 36430; 93005; 96361; 96365; 96367; 96375; 99285